=== PATIENT | male | born 1965 | race Caucasian/White ===

== ENCOUNTER 2019-06-08 02:13 | Emergency (ER) | payer SELFPAY ==
[~2019-06-08] VITALS: Ht 180.3 cm; Wt 109.1 kg
[2019-06-08 02:25] VITALS: Ht 180.3 cm; Wt 109.1 kg
[2019-06-08] MEDS ORDERED: KEFLEX500 MG PO (02:48)
[2019-06-08 03:05] VITALS: BP 120/82
== END 2019-06-08 03:02 | disposition home or self-care (01) ==
LOC: D.ER 02:13
DX: S61.226A Laceration with foreign body of right little finger without damage to nail, initial encounter (principal); X58.XXXA Exposure to other specified factors, initial encounter; Y93.9 Activity, unspecified; Y92.9 Unspecified place or not applicable